=== PATIENT | female | born 1970 ===

== ENCOUNTER 2021-10-15 14:24 | Emergency (ER) | payer SELFPAY ==
[2021-10-15] MEDS ORDERED: Ketorolac 60 MG/2 ML SDV IM ONE (14:44)
--- NOTE | 2021-10-15 14:46 | EDM.PDOC ---
ED HPI GENERAL MEDICAL PROBLEM - General Chief Complaint: Upper Extremity Injury/Pain Stated Complaint: PAIN LEFT SHOULDER JAW NUMBNESS Time Seen by Provider: 10/15/21 14:32 Source of Information: Reports: Patient History Limitations: Reports: No Limitations - History of Present Illness INITIAL COMMENTS - FREE TEXT/NARRATIVE: HISTORY AND PHYSICAL: History of present illness: The patient is a 51-year-old female who presents to the emergency department with complaints of tightness over the left shoulder extending to her jaw which increases with movement of her left arm. The patient states that she has been taking care of her sick kids for and yesterday started having nasal congestion and coughing herself. She states that approximately 2 days ago she had a low- grade fever of 100.5. The sick children have not been tested as the patient states that their fever broke. Patient states that she has been vaccinated and her second dose of the eyes her vaccination cause her to have all heart palpitations which she wore a monitor for. This was approximately 1 month ago. The patient is not having palpitations at this time. Patient denies any fever, chills, headache, change in vision, syncope or near syncope. Denies any chest pain, back pain, shortness of breath. Denies any abdominal pain, nausea, vomiting, diarrhea, constipation or dysuria. Has not noted any blood in urine or stool. Patient has been eating and drinking appropriately. Review of systems: As per history of present illness and below otherwise all systems reviewed and negative. Past medical history: As per history of present illness and as reviewed below otherwise noncontributory. Surgical history: As per history of present illness and as reviewed below otherwise noncontributory. Social history: See social history for further information Family history: As per history of present illness and as reviewed below otherwise noncontributory. Physical exam: General: Well developed and well nourished. Alert and orientated x 3. Nontoxic in appearance and in no acute distress. Vital signs are stable and have been reviewed by me. Nursing notes were reviewed. HEENT: Atraumatic, normocephalic, pupils equal and reactive bilaterally, negative for conjunctival pallor or scleral icterus, mucous membranes moist, TMs normal bilaterally, throat clear, neck supple, nontender, trachea midline. No drooling or trismus noted. No meningeal signs. No hot potato voice noted. Lungs: Clear to auscultation bilaterally. No wheezes, rales, or rhonchi. Chest nontender. Normal work of breathing, no accessory muscles used. Heart: S1S2, regular rate and rhythm without overt murmur, gallops, or rubs. No JVD. No peripheral edema Abdomen: Soft, nondistended, nontender. Normoactive bowel sounds. Negative for masses or costovertebral tenderness. Skin: Intact, warm, dry. No lesions or rashes noted. Hematologic: No petechiae or purpra. Mucosa appropriate color and normal nail bed color and refill. Extremities: Pain with right arm abduction. Non-tender to palpation. Moves all other extremities per self without difficulty or deficits, negative for cords or calf pain. Neurovascular unremarkable. Neuro: Awake, alert, oriented. Cranial nerves II through XII unremarkable. Cerebellum unremarkable. Motor and sensory unremarkable throughout. Exam nonfocal. Psychiatric: Mood and affect are appropriate. Normal thought process. Answering questions appropriately. Notes: *This patient was seen and evaluated during the 2019 SARS-CoV-2 novel coronavirus pandemic period. Community viral transmission is ongoing at time of this encounter and the emergency department is operating under pandemic response procedures. As stated above the patient is a 51-year-old female who presents with complaints of nasal congestion and cough along with left sided shoulder/neck tightness and pain with movement. The patient has been around her sick kids for approximately 1 week who had similar upper respiratory infections. The patient's pain seems muscular in nature. We will test for Covid, influenza, and do a cardiac. The patient is agreeable with this plan. The patient's CBC, CMP, and troponin were all within normal limits. Chest x-ray IMPRESSION: Negative portable AP chest. The patient's influenza A was positive. The patient's influenza B and COVID-19 were negative. I have treated the patient with Tamiflu 75 mg for her influenza A. I have treated her left upper chest pain with Norflex 60 mg IM. I will prescribe Tamiflu 75 mg p.o. twice daily for 5 days and Norflex 100 mg p.o. twice daily for 10 days. I have asked her to call her primary care for her children that fall within the 48-hour time window for Tamiflu. Advised the patient on how to treat the influenza with fluids, rest, and the Tamiflu. The patient verbalizes understanding. I have talked with the patient about today's findings, in addition to providing specific details for plan of care. Reassessment at the time of disposition d emonstrates that the patient is in no acute distress. The patient is stable for discharge, counseling was provided and we discussed in great detail signs and symptoms that would prompt them to return to the Emergency Department. Medication, follow up and supportive care measures were reviewed and discussed. Voices understanding and is agreeable to plan of care. Denies any further questions or concerns at this time. Diagnostics: CBC, CMP, troponin, chest x-ray, EKG, Covid/influenza swab Therapeutics: Toradol, Tamiflu, Norflex Prescription: Tamiflu 75 mg p.o. twice daily for 5 days, Norflex 100 mg p.o. twice daily for 10 days Impression: Influenza A, chest pain Plan: 1. You were evaluated today on an emergent basis. Your complaints of cough and nasal congestion was evaluated with a head/flu swab and was found to be positive for influenza A. This is treated with Tamiflu 75 mg twice a day for 5 days which was sent to [facility]. You received your first dose in the emergency departm ent. For your children that are sick at home that are within the timeframe of 48 hours please call your primary care to let them know what is happening to get scripts of Tamiflu. Your left chest pain that had increased pain with arm movement was evaluated with an x-ray, EKG and a blood work which all were normal. We treated your pain with Toradol and Norflex in the emergency department. I have prescribed you Norflex 100 mg p.o. twice daily for 10 days which was sent to [facility]. It will take a couple days for this to take effect and really work. If you do not start feeling better after about 7 days of your muscle pain make an appointment to follow-up with your primary care provider as you might need a further work-up. If you become short of breath, vomiting uncontrollably, or feel as you are generally not getting better please return to the emergency department for further work-up. 2. You can alternate Tylenol and ibuprofen as needed for pain and fever management. 3. We encourage you to follow up with your primary care provider and/or recommended specialist in the next few days for re-evaluation and further care/management. 4. If your symptoms should worsen, new symptoms develop or any of the signs and symptoms we discussed should arise please return to the emergency room or call 911 (if needed). Definitive disposition and diagnosis as appropriate pending reevaluation and review of above. Left Arm Pain Score (Numeric/FACES): 7 - Related Data Allergies Allergy/AdvReac Type Severity Reaction Status Date / Time No Known Allergies Allergy Verified 10/15/21 14:30 Home Meds: Home Meds Orphenadrine [Norflex] 100 mg PO BID PRN 10 Days #20 tab 10/15/21 [Rx] Oseltamivir [Tamiflu] 75 mg PO BID 5 Days #9 cap 10/15/21 [Rx] metFORMIN HCl [Metformin HCl ER] 750 mg PO DAILY 10/15/21 [History] Past Medical History - Past Health History Medical/Surgical History: Denies Medical/Surgical History - Infectious Disease History Infectious Disease History: Reports: Novel Coronavirus Social & Family History - Tobacco Use Tobacco Use Status *Q: Never Tobacco User - Recreational Drug Use Recreational Drug Use: No Review of Systems - Review of Systems Review Of Systems: Comprehensive ROS is negative, except as noted in HPI. ED EXAM, GENERAL - Physical Exam Exam: See Below (See dictation) Course - Vital Signs Last Recorded V/S: Last Vital Signs Temp 98.2 F 10/15/21 17:42 Pulse 73 10/15/21 17:42 Resp 17 10/15/21 17:42 BP 111/70 10/15/21 17:42 Pulse Ox 98 10/15/21 17:42 - Orders/Labs/Meds Labs: Laboratory Tests 10/15/21 10/15/21 10/15/21 Range/Units 15:16 16:22 16:22 WBC 5.11 (4.0-11.0) K/uL RBC 4.99 (4.30-5.90) M/uL Hgb 15.2 (12.0-16.0) g/dL Hct 44.0 (36.0-46.0) % MCV 88.2 (80.0-98.0) fL MCH 30.5 (27.0-32.0) pg MCHC 34.5 (31.0-37.0) g/dL RDW Std Deviation 42.0 (28.0-62.0) fl RDW Coeff of [place]anna 13 (11.0-15.0) % Plt Count 218 (150-400) K/uL MPV 9.90 (7.40-12.00) fL Neut % (Auto) 43.3 L (48.0-80.0) % Lymph % (Auto) 40.3 H (16.0-40.0) % Jones % (Auto) 13.9 (0.0-15.0) % Eos % (Auto) 2.3 (0.0-7.0) % Baso % (Auto) 0.2 (0.0-1.5) % Neut # (Auto) 2.2 (1.4-5.7) K/uL Lymph # (Auto) 2.1 (0.6-2.4) K/uL Jones # (Auto) 0.7 (0.0-0.8) K/uL Eos # (Auto) 0.1 (0.0-0.7) K/uL Baso # (Auto) 0.0 (0.0-0.1) K/uL Nucleated RBC % 0.0 /100WBC Nucleated RBCs # 0 K/uL Sodium 140 (136-145) mmol/L Potassium 3.8 (3.5-5.1) mmol/L Chloride 105 (98-107) mmol/L Carbon Dioxide 24.2 (21.0-32.0) mmol/L BUN 11 (7.0-18.0) mg/dL Creatinine 0.8 (0.6-1.0) mg/dL Est Cr Clr Drug Dosing 74.02 mL/min Estimated GFR (MDRD) > 60.0 ml/min Glucose 102 (74-106) mg/dL Calcium 9.2 (8.5-10.1) mg/dL Total Bilirubin 0.4 (0.2-1.0) mg/dL AST 33 (15-37) IU/L ALT 63 (14-63) IU/L Alkaline Phosphatase 75 (46-116) U/L Troponin I < 0.050 (0.000-0.056) ng/mL Total Protein 7.6 (6.4-8.2) g/dL Albumin 4.1 (3.4-5.0) g/dL Globulin 3.5 (2.6-4.0) g/dL Albumin/Globulin Ratio 1.2 (0.9-1.6) Influenza Type A RNA POSITIVE H (NEGATIVE) Influenza Type B RNA NEGATIVE (NEGATIVE) SARS-CoV-2 RNA (AMBROSE) NEGATIVE (NEGATIVE) Meds: Medications Discontinued Medications Generic Name Dose Route Start Last Admin Trade Name Freq PRN Reason Stop Dose Admin Ketorolac Tromethamine 60 mg 10/15/21 14:44 10/15/21 15:24 Ketorolac 60 Mg/2 Ml Sdv IM 10/15/21 14:45 60 mg ONETIME ONE Administration Orphenadrine Citrate 60 mg 10/15/21 17:09 10/15/21 17:46 Orphenadrine 60 Mg/2 Ml Inj IM 10/15/21 17:10 60 mg ONETIME ONE Administration Oseltamivir Phosphate 75 mg 10/15/21 17:09 10/15/21 17:46 Oseltamivir 75 Mg Cap PO 10/15/21 17:10 75 mg ONETIME ONE Administration Departure - Departure Time of Disposition: 17:17 Disposition: Home, Self-Care 01 Condition: Good Clinical Impression: Influenza A Chest pain Qualifiers: Chest pain type: unspecified Qualified Code(s): R07.9 - Chest pain, unspecified - Discharge Information *PRESCRIPTION DRUG MONITORING PROGRAM REVIEWED*: Not Applicable *COPY OF PRESCRIPTION DRUG MONITORING REPORT IN PATIENT DRISS: Not Applicable Prescriptions: Orphenadrine [Norflex] 100 mg PO BID PRN 10 Days #20 tab PRN Reason: Muscle Spasm - Painful Oseltamivir [Tamiflu] 75 mg PO BID 5 Days #9 cap Instructions: Influenza, Adult, [id number] Referrals: PCP,None [Primary Care Provider] - Forms: ED Department Discharge Additional Instructions: The following information is given to patients seen in the emergency department who are being discharged to home. This information is to outline your options for follow-up care. We provide all patients seen in our emergency department with a follow-up referral. The need for follow-up, as well as the timing and circumstances, are variable depending upon the specifics of your emergency department visit. If you don't have a primary care physician on staff, we will provide you with a referral. We always advise you to contact your personal physician following an e mergency department visit to inform them of the circumstance of the visit and for follow-up with them and/or the need for any referrals to a consulting specialist. The emergency department will also refer you to a specialist when appropriate. This referral assures that you have the opportunity for follow-up care with a specialist. All of these measure are taken in an effort to provide you with op timal care, which includes your follow-up. Under all circumstances we always encourage you to contact your private physician who remains a resource for coordinating your care. When calling for follow-up care, please make the office aware that this follow-up is from your recent emergency room visit. If for any reason you are refused follow-up, please contact the [facility] Emergency Department at and asked to speak to the emergency department charge nurse. [facility] [address] [place] [id number] [facility] [address] [place] [id number] Plan: 1. You were evaluated today on an emergent basis. Your complaints of cough and nasal congestion was evaluated with a head/flu swab and was found to be positive for influenza A. This is treated with Tamiflu 75 mg twice a day for 5 days which was sent to [facility]. You received your first dose in the emergency department. For your children that are sick at home that are within the timeframe of 48 hours please call your primary care to let them know what is happening to get scripts of Tamiflu. Your left chest pain that had increased pain with arm movement was evaluated with an x-ray, EKG and a blood work which all were normal. We treated your pain with Toradol and Norflex in the emergency department. I have prescribed you Norflex 100 mg p.o. twice daily for 10 days which was sent to [facility]. It will take a couple days for this to take effect and really work. If you do not start feeling better after about 7 days of your muscle pain make an appointment to follow-up with your primary care provider as you might need a further work-up. If you become short of breath, vomiting uncontrollably, or feel as you are generally not getting better please return to the emergency department for further work-up. 2. You can alternate Tylenol and ibuprofen as needed for pain and fever management. 3. We encourage you to follow up with your primary care provider and/or recommended specialist in the next few days for re-evaluation and further care/management. 4. If your symptoms should worsen, new symptoms develop or any of the signs and symptoms we discussed should arise please return to the emergency room or call 911 (if needed).
--- NOTE | 2021-10-15 15:56 | CR ---
INDICATION: Chest pain. COMPARISON: None. TECHNIQUE: Portable AP chest. FINDINGS: Normal size cardiac silhouette. clear lung medrano without evidence of acute pneumonic infiltrates or CHF. No pneumothorax or pleural effusion. IMPRESSION: Negative portable AP chest. Dictated by Enrrique Mcneil MD @ 10/15/2021 3:54:36 PM (Electronically Signed)
[2021-10-15 15:59] LABS: CORONAVIRUS COVID-19 NAA NEGATIVE (NEGATIVE); INFLUENZA A NAA POSITIVE (NEGATIVE); INFLUENZA B NAA NEGATIVE (NEGATIVE)
--- NOTE | 2021-10-15 16:34 | PCM.EKG ---
#1 Interpretation EKG Interpretation Comments: EKG done 10/15/2021 at 3:29 PM shows a sinus rhythm with a heart rate of 81 VA interval 152 QT duration 438 axis -5. QRS essentially normal with ST and T normal no prior for comparison available at this moment in the patient's interpretation is normal EKG
[2021-10-15 16:53] LABS: BLOOD UREA NITROGEN,BUN 11 mg/dL (7.0-18.0); CARBON DIOXIDE,CO2 24.2 mmol/L (21.0-32.0); CHLORIDE,CL 105 mmol/L (98-107); GLUCOSE RANDOM 102 mg/dL (74-106); POTASSIUM,K 3.8 mmol/L (3.5-5.1); SODIUM,NA 140 mmol/L (136-145)
[2021-10-15] MEDS ORDERED: Oseltamivir 75 MG Cap PO ONE (17:09)
[2021-10-15] MEDS ORDERED: Orphenadrine 60 MG/2 ML Inj IM ONE (17:09)
== END 2021-10-15 17:45 | disposition home or self-care (01) ==
LOC: MW.ED 14:24
DX: R07.89 Other chest pain (principal); J10.1 Influenza due to other identified influenza virus with other respiratory manifestations; Z79.84 Long term (current) use of oral hypoglycemic drugs; Z20.822 Contact with and (suspected) exposure to COVID-19
CPT/HCPCS: 0240U; 36415; 71045; 80053; 84484; 85025; 93005; 96372; 99285; A9270; J1885; J2360